=== PATIENT | male | born 1980 | race Caucasian/White ===

== ENCOUNTER 2020-11-19 10:37 | Emergency (ER) | payer MEDICAID ==
[~2020-11-19] VITALS: Ht 190.5 cm; Wt 108.9 kg
--- NOTE | 2020-11-19 10:58 | NUR ---
BIB SELF C/O R BUTTOCK ABSCESS FOR 1 WEEK "IM INJECTING TESTOSTERONE ON THIS AREA" TOOK TRAMADOL 50MG PO AROUND 8:30AM. AOX4, NO SOB, NO S/O ANY ACUTE DISTRESS NOTED. PATIENT KEPT COMFORTABLE. SAFETY PRECAUTIONS IN PLACE. WILL CONTINUE TO MONITOR
[2020-11-19] MEDS ORDERED: PIPERACILLIN /TAZOBACTAM 3.375 G in IV D5W 50 ML IV ONE (11:00)
[2020-11-19] MEDS ORDERED: VANCOMYCIN 1 GM in IV D5W 250 ML IV ONE (11:00)
[2020-11-19 11:20] LABS: BASOPHILS # (AUTO) 0.1 K/uL (0.0-0.2); EOSINOPHILS % (AUTO) 0.9 % (0.0-6.0); HEMATOCRIT 41 % (39-51); HEMOGLOBIN 13.7 g/dL (13.5-17.5); LYMPHOCYTES # (AUTO) 0.5 K/uL (0.8-4.8); MEAN CORPUSCULAR HGB CONC 34 g/dl (31.0-36.0); MEAN CORPUSCULAR VOLUME 91 fL (80-96); MONOCYTES # (AUTO) 0.8 K/uL (0.1-1.30); MONOCYTES % (AUTO) 6.5 % (2.0-12.0); NEUTROPHILS # (AUTO) 10.5 K/uL (1.8-8.9); NEUTROPHILS % (AUTO) 87.6 % (43.0-81.0); PLATELET COUNT (AUTO) 315 K/uL (150-450); RED BLOOD CELL COUNT(AUTO) 4.53 MIL/uL (4.5-6.0); WHITE BLOOD COUNT (AUTO) 11.9 K/uL (4.3-11.0)
[2020-11-19 11:28] LABS: CALCIUM, SERUM 8.8 mg/dL (8.5-10.1); CREATININE 1.2 mg/dL (0.6-1.3); POTASSIUM 3.7 mmol/L (3.5-5.1)
--- NOTE | 2020-11-19 11:40 | NUR ---
Carmelo nugent in [facility] - 11/19/20 at 1141 by CHAD BED ASSIGNMENT TO 103
--- NOTE | 2020-11-19 13:12 | NUR ---
[facility] CALLED NUTTER UP PAGED.
[2020-11-19 13:30] VITALS: BP 128/86
--- NOTE | 2020-11-19 13:30 | NUR ---
PT ASLEEP, EASILY AWAKEN BY VERBAL STIMULI. DENIES CP, SOB, DIZZINESS, N/V AT THIS TIME. WILL CONT TO MONITOR.
[2020-11-19] MEDS ORDERED: ACETAMINOPHEN 325 MG TABLET PO PRN (14:00)
[2020-11-19] MEDS ORDERED: MORPHINE SULFATE INJ 2 MG/ML DISP.SYRIN IV PRN (14:00)
[2020-11-19] MEDS ORDERED: ONDANSETRON HCL/PF 4 MG/2 ML VIAL IVP PRN (14:00)
[2020-11-19] MEDS ORDERED: IV NS 0.9% 1,000 ML IV PRN (14:00)
[2020-11-19] MEDS ORDERED: LABETALOL 20 MG/4 ML VIAL IV PRN (14:00)
[2020-11-19] MEDS ORDERED: hydrALAZINE HCL IV 20 MG VIAL IV PRN (14:00)
--- NOTE | 2020-11-19 16:20 | NUR ---
PT SIGNED AMA FORM. PT STS " I JUST NEED TO DO SOMETHING AND I WILL BE RIGHT BACK ". DR. LEÓN AWARE. IV removed. Catheter intact and site benign. Pressure and 4x4 applied to site. No bleeding noted.
[2020-11-19] MEDS ORDERED: ENOXAPARIN SODIUM 40 MG/0.4 ML DISP.SYRIN SQ SCH (21:00)
[2020-11-19] MEDS ORDERED: VANCOMYCIN HCL 1.25 GM in IV D5W 260 ML IV ONE (22:00)
[2020-11-20] MEDS ORDERED: CEFEPIME 1 GM in IV D5W 50 ML IV SCH (09:00)
== END 2020-11-19 16:21 | disposition left against medical advice (07) ==
LOC: ER 10:41
DX: L02.31 Cutaneous abscess of buttock (principal); S31.813S Puncture wound without foreign body of right buttock, sequela; X78.8XXS Intentional self-harm by other sharp object, sequela; Z20.822 Contact with and (suspected) exposure to COVID-19; R94.31 Abnormal electrocardiogram [ECG] [EKG]
CPT/HCPCS: 36415; 71045; 80048; 83605; 84145; 85025; 85730; 87040 ×2; 87081; 87426; 93005; 96365; 96367; 99285; C9803; J2543; J3370; J7060

== ENCOUNTER 2020-11-20 09:23 | Inpatient (IN) | payer MEDICAID ==
[~2020-11-20] VITALS: Ht 185.4 cm; Wt 90.7 kg
--- NOTE | 2020-11-20 09:23 | NUR ---
PT BIB SELF C/O R BUTTOCK ABSCESS "IM INJECTING TESTOSTERONE AND GOT INFECTED" PT IS AAOX4, NOT IN RESPIRATORY DISTRESS, V/S STABLE, KEPT RESTED AND COMFORTABLE. WILL CONTINUE TO MONITOR.
--- NOTE | 2020-11-20 09:31 | NUR ---
AT BEDSIDE FOR EVAL.
--- NOTE | 2020-11-20 09:35 | NUR ---
IV LINE ESTABLISHED BLOOD DRAWN AND SENT TO LAB.
[2020-11-20] MEDS ORDERED: IBUPROFEN 400 MG TABLET ONE (09:44)
[2020-11-20] MEDS ORDERED: IBUPROFEN 400 MG TABLET PO ONE (10:00)
[2020-11-20] MEDS ORDERED: CEFEPIME 1 GM in IV D5W 50 ML IV ONE (10:00)
[2020-11-20] MEDS ORDERED: VANCOMYCIN 1 GM in IV D5W 250 ML IV ONE (10:00)
[2020-11-20] MEDS ORDERED: IV NS 0.9% 1,000 ML BAG IV ONE (10:00)
[2020-11-20 10:09] LABS: RED BLOOD CELL COUNT(AUTO) 4.68 MIL/uL (4.5-6.0)
[2020-11-20 10:14] LABS: CALCIUM, SERUM 8.8 mg/dL (8.5-10.1); CREATININE 1.2 mg/dL (0.6-1.3); POTASSIUM 4.2 mmol/L (3.5-5.1)
[2020-11-20 10:17] LABS: BASOPHILS # (AUTO) 0.1 K/uL (0.0-0.2); BASOPHILS % (AUTO) 0.6 % (0.0-2.0); EOSINOPHILS % (AUTO) 2.2 % (0.0-6.0); HEMATOCRIT 42 % (39-51); HEMOGLOBIN 14.4 g/dL (13.5-17.5); LYMPHOCYTES # (AUTO) 0.9 K/uL (0.8-4.8); LYMPHOCYTES % (AUTO) 8.6 % (20.0-44.0); MEAN CORPUSCULAR HGB CONC 34 g/dl (31.0-36.0); MEAN CORPUSCULAR VOLUME 90 fL (80-96); MONOCYTES # (AUTO) 0.9 K/uL (0.1-1.30); MONOCYTES % (AUTO) 8.5 % (2.0-12.0); NEUTROPHILS # (AUTO) 8.2 K/uL (1.8-8.9); NEUTROPHILS % (AUTO) 80.1 % (43.0-81.0); PLATELET COUNT (AUTO) 360 K/uL (150-450); WHITE BLOOD COUNT (AUTO) 10.3 K/uL (4.3-11.0)
--- NOTE | 2020-11-20 11:49 | NUR ---
PAGED EPIC S[employer] RENTAL CLERK FOR CONSULT. ER MD AND SAFE DEPOS[employer] BOX RENTAL CLERK ARE ON THE PHONE
--- NOTE | 2020-11-20 11:55 | NUR ---
CALLED NURSING SUP FOR BED
[2020-11-20] MEDS ORDERED: MAG HYDROX/AL HYDROX/SIMETH 30 ML UDC PO PRN (12:30)
[2020-11-20] MEDS ORDERED: Z GUARD REMEDY 2 OZ OINT TP PRN (12:30)
[2020-11-20] MEDS ORDERED: ACETAMINOPHEN 325 MG TABLET PO PRN (12:30)
[2020-11-20] MEDS ORDERED: ONDANSETRON HCL/PF 4 MG/2 ML VIAL IVP PRN (12:30)
[2020-11-20] MEDS ORDERED: IV NS 0.9% 1,000 ML IV PRN (12:30)
[2020-11-20] MEDS ORDERED: MAGNESIUM HYDROXIDE 30 ML UDC PO PRN (12:30)
[2020-11-20] MEDS ORDERED: LIDOCAINE 2%-EPI 1:100,000 30 ML VIAL ONE (13:11)
[2020-11-20] MEDS ORDERED: MORPHINE SULFATE INJ 2 MG/ML DISP.SYRIN ONE (14:07)
--- NOTE | 2020-11-20 14:09 | NUR ---
I AND D DONE BY JOYCE SHERIDAN
[2020-11-20] MEDS ORDERED: MORPHINE SULFATE INJ 2 MG/ML DISP.SYRIN IV ONE (14:30)
--- NOTE | 2020-11-20 15:15 | NUR ---
BED [phone]. PLEASE BRING UP AT [phone]
--- NOTE | 2020-11-20 15:31 | NUR ---
REPORT GIVEN TO KURT AGUIRRE FOR CATHY.
--- NOTE | 2020-11-20 16:05 | NUR ---
RN NOTES PATIENT TRANSFERRED TO UNIT AT ROOM 313-1 VIA [facility], ACCOMPANIED BY 1 LUNCH TRUCK DRIVER. PATIENT ABLE TO AMBULATE TO BED.
--- NOTE | 2020-11-20 17:35 | NUR ---
RN NOTES RIGHT BUTTOCK WOUND RE-PACKED W/ GAUZE SECONDARY TO BEING SOAKED W/ SANGUINOUS DRAINAGE; PROCEDURE TOLERATED WELL BY PATIENT W/ NO COMPLAINT OF PAIN AT THIS TIME.
[2020-11-20] MEDS: MORPHINE SULFATE INJ 2 MG/ML DISP.SYRIN IV PRN ×2 (18:11→22:28)
--- NOTE | 2020-11-20 18:20 | NUR ---
RN NOTES ADMITTED THIS 40-YEAR-OLD MALE FROM HOME, PRESENTING TO THE ER W/ COMPLAINT OF SWELLING, PAIN, AND REDNESS ON RIGHT BUTTOCK W/ ADMITTING DX OF RIGHT BUTTOCK ABSCESS UNDER THE CARE OF DR. HAMLIN. PATIENT IS A/O X4, VERBALLY RESPONSIVE AND ABLE TO MAKE NEEDS KNOWN. BREATHING EVEN AND UNLABORED, TOLERATING ROOM AIR. IV ACCESS ON LAC #18 INTACT AND PATENT W/ IVF OF NS AT 75ML/HR INFUSING. PATIENT IS AMBULATORY W/ STEADY GAIT. RIGHT BUTTOCK WAS NOTED W/ ABDOMINAL PAD W/ LIGHT AMOUNT OF DRY BLOOD ON THE SIDES; ABSCESS WAS EXCISED AT THE ER S/P I&D BY HORACE COOK. WOUND WAS RE-PACKED W/ DRY DRESSING AND COVERED W/ ABDOMINAL PAD. SAFETY MEASURES IN PLACE. PATIENT WAS ORIENTED TO USE OF CALL LIGHT BUTTON FOR STAFF ASSISTANCE. PROVIDED W/ PAIN MEDICATION PER REQUEST FOR PAIN. WILL ENDORSE TO TELEVISION WRITER RN FOR CATHY.
--- NOTE | 2020-11-20 19:28 | NUR ---
MS RN OPENING NOTES: RECEIVED PATIENT SLEEP IN BED COMFORTABLY, AROUSABLE TO VERBAL STIMULI, BED IN LOW CONDITION, CALL LIGHTS WITHIN REACH, NO COMPLAIN OF PAIN AND DISCOMFORT AT THIS TIME, WITH IV LINE AT LAC #18 ON NSS@75ML INFUSING WELL, PATIENT KEPT CLEAN AND DRY, WILL CONTINUE TO MONITOR.
[2020-11-20 20:00] VITALS: BP 147/83
[2020-11-20] MEDS: CEFEPIME 2 GM in IV D5W 100 ML IV SCH (21:18)
[2020-11-20] MEDS: VANCOMYCIN 1.5 GM in IV D5W 500 ML IV SCH (22:35)
--- NOTE | 2020-11-21 06:37 | NUR ---
MS RN CLOSING NOTES: RECEIVED PATIENT SLEEP IN BED COMFORTABLY, AROUSABLE TO STIMULI, BED IN LOW POSITION, CALL LIGHTS WITHIN REACH, NO COMPLAIN OF PAIN AND DISCOMFORT AT THIS TIME, A/O X4, AMBULATORY WITH IV LINE AT LAC #18 WITH NSS RUNNING AT 75ML/HR INFUSING WELL, CHANGE DRESSING FOR INCISION AND DRAINAGE ON RIGHT HIP, ALL NEEDS MET , KEPT CLEAN AND DRY, ENDORSE TO INCOMING SHIFT.
[2020-11-21 06:38] LABS: BASOPHILS # (AUTO) 0.1 K/uL (0.0-0.2); BASOPHILS % (AUTO) 1.1 % (0.0-2.0); EOSINOPHILS % (AUTO) 7.2 % (0.0-6.0); HEMATOCRIT 39 % (39-51); HEMOGLOBIN 13.1 g/dL (13.5-17.5); LYMPHOCYTES # (AUTO) 1.2 K/uL (0.8-4.8); LYMPHOCYTES % (AUTO) 21.8 % (20.0-44.0); MEAN CORPUSCULAR HGB CONC 34 g/dl (31.0-36.0); MEAN CORPUSCULAR VOLUME 91 fL (80-96); MONOCYTES # (AUTO) 0.6 K/uL (0.1-1.30); MONOCYTES % (AUTO) 10.9 % (2.0-12.0); NEUTROPHILS # (AUTO) 3.2 K/uL (1.8-8.9); PLATELET COUNT (AUTO) 342 K/uL (150-450); RED BLOOD CELL COUNT(AUTO) 4.24 MIL/uL (4.5-6.0); WHITE BLOOD COUNT (AUTO) 5.5 K/uL (4.3-11.0)
[2020-11-21 07:09] LABS: ALBUMIN 2.4 g/dL (3.4-5.0); BILIRUBIN,TOTAL 0.2 mg/dL (0.2-1.0); CALCIUM, SERUM 8.2 mg/dL (8.5-10.1); CREATININE 1.3 mg/dL (0.6-1.3); MAGNESIUM 2.1 mg/dL (1.8-2.4); PHOSPHORUS 3.2 mg/dL (2.5-4.9); TOTAL PROTEIN, SERUM 6.3 g/dL (6.4-8.2)
--- NOTE | 2020-11-21 07:18 | NUR ---
MS RN OPENING NOTE RECEIVED PATIENT RESTING IN BED. PATIENT IS A/O X4. PATIENT IS BREATHING EVENLY AND NONLABORED ON ROOM AIR. PATIENT IS IN NO ACUTE SIGNS OF DISTRESS. PATIENT HAS DRESSING INTACT ON BUTTOCK CLEAN AND DRY. PATIENT HAS IV ACCESS LAC # 18 RUNNING NS @ 75 ML/HR. SAFETY MEASURES IN PLACE BED LOW LOCKED AND CALL LIGHT WITHIN REACH. WILL CONTINUE TO MONITOR.
[2020-11-21] MEDS: PANTOPRAZOLE 40 MG TABLET.DR PO SCH (07:54)
[2020-11-21 08:00] VITALS: BP 137/75
[2020-11-21] MEDS: CEFEPIME 2 GM in IV D5W 100 ML IV SCH ×2 (08:04→21:06)
[2020-11-21] MEDS: VANCOMYCIN 1.5 GM in IV D5W 500 ML IV SCH (10:09)
[2020-11-21] MEDS: VANCOMYCIN 1.25 GM in IV D5W 250 ML IV SCH (18:08)
--- NOTE | 2020-11-21 18:23 | NUR ---
MS RN CLOSING NOTES: PATIENT RESTING IN BED COMFORTABLY, ABUSABLE TO STIMULI. PATIENT IS A/O X4. PATIENT IS BREATHING EVENLY AND NONLABORED ON ROOM AIR. NO COMPLAIN OF PAIN AND DISCOMFORT AT THIS TIME, AMBULATORY WITH IV LINE AT LAC #18 WITH NSS RUNNING AT 75ML/HR INFUSING WELL, CHANGED DRESSING FOR INCISION AND DRAINAGE ON RIGHT HIP C/D/I. ALL NEEDS MET AND MEDICATIONS GIVEN ORDERED, SAFETY MEASURES ARE IN PLACE BED IN LOW POSITION, CALL LIGHTS WITHIN REACH. WILL ENDORSE TO INCOMING SHIFT.
--- NOTE | 2020-11-21 19:35 | NUR ---
MS RN Opening Notes Patient was last seen awake in bed resting. Patient's alert and oriented x4. Patient's on room air with no respiratory distress noted. Patient has an IV access on his left AC #18. Patient's in no acute distress at this time. Safety measures in place: Bed locked, side rails up x2, and call light within reach of the patient. Will continue to monitor the patient.
[2020-11-21 20:00] VITALS: BP 153/59
[2020-11-22] MEDS: VANCOMYCIN 1.25 GM in IV D5W 250 ML IV SCH ×2 (02:07→09:11)
[2020-11-22 07:09] LABS: ALBUMIN 2.5 g/dL (3.4-5.0); BILIRUBIN,TOTAL 0.2 mg/dL (0.2-1.0); CALCIUM, SERUM 7.9 mg/dL (8.5-10.1); CREATININE 1.5 mg/dL (0.6-1.3); MAGNESIUM 2.2 mg/dL (1.8-2.4); POTASSIUM 3.8 mmol/L (3.5-5.1); TOTAL PROTEIN, SERUM 6.5 g/dL (6.4-8.2)
--- NOTE | 2020-11-22 07:15 | NUR ---
MS RN Closing Notes Patient was last seen awake in bed resting. Patient's alert and oriented x4. Patient's on room air with no respiratory distress noted. Patient has an IV access on his left AC #18. Patient's in no acute distress at this time. Safety measures in place: Bed locked, side rails up x2, and call light within reach of the patient. Will endorse care to the day shift nurse.
--- NOTE | 2020-11-22 07:30 | NUR ---
WOUND CARE CONSULT: PT PRESENTS WITH SURGICAL SITE TO RT BUTTOCK, STATUS POST I&D. NO ERYTHEMA OR INDURATION NOTED. PT REFUSED TO HAVE PACKING REMOVED AT THIS TIME. OUTER DRESSING CHANGED (SEROSANGUINOUS DRAINAGE, NO ODOR). DEFER TO SURGICAL TEAM CURRENTLY ON CASE FOR WOUND TREATMENT PLAN. WILL SEE PRN.
[2020-11-22] MEDS: CEFEPIME 2 GM in IV D5W 100 ML IV SCH (08:03)
[2020-11-22] MEDS: PANTOPRAZOLE 40 MG TABLET.DR PO SCH (08:03)
[2020-11-22 08:16] VITALS: BP 129/73
--- NOTE | 2020-11-22 11:53 | NUR ---
ELEMENTARY VOCAL MUSIC TEACHER NOTE RECEIVED ORDER FOR DISCHARGE PATIENT IS A/O X4. PATIENT IS BREATHING EVENLY AND NONLABORED ON ROOM AIR. PATIENT WAS GIVEN DISCHARGE INSTRUCTIONS BOTH VERBALLY AND IN WRITTEN FORM. VERBALIZED UNDERSTANDING. PATIENT WAS TAUGHT HOW TO CHANGE DRESSINGS AND GIVEN SUPPLIES. PATIENT WAS ALSO GIVEN WRITTEN PRESCRIPTION. IV ACCESS WAS REMOVED CATHETER TIP INTACT, PRESSURE DRESSING APPLIED. ID BAND REMOVED PATIENT LEFT IN STABLE CONDITION VIA PRIVATE CAR
== END 2020-11-22 11:50 | disposition home or self-care (01) | DRG 383 ==
LOC: ER 09:23 → TRANSITION 12:45 → MED 15:38
PROVIDERS: ADMIT Hospitalist
PROC: 0H98XZZ Drainage of Buttock Skin, External Approach (ICD-10-PCS; principal; 2020-11-20)
DX: L02.31 Cutaneous abscess of buttock (principal); E44.1 Mild protein-calorie malnutrition; Z79.52 Long term (current) use of systemic steroids; Z91.19 Patient's noncompliance with other medical treatment and regimen; L03.317 Cellulitis of buttock; B95.8 Unspecified staphylococcus as the cause of diseases classified elsewhere
CPT/HCPCS: 36415; 80048-TC; 80053-TC; 80061-TC; 80202-TC; 83735-TC; 84100-TC; 85025-TC; 87070-TC; 87081-TC; A6253; A6403; A6407; G0378; J0692; J2270; J2405; J3370; J3490; J7030; J7060

== ENCOUNTER 2022-12-17 13:02 | Emergency (ER) | payer MEDICAID, OTHER ==
[~2022-12-17] VITALS: Ht 190.5 cm; Wt 113.4 kg
[2022-12-17 13:55] VITALS: BP 128/71; TEMP 98.5; O2SAT 100
== END 2022-12-17 13:55 | disposition home or self-care (01) ==
LOC: ER 13:06
DX: S50.11XA Contusion of right forearm, initial encounter (principal); W22.8XXA Striking against or struck by other objects, initial encounter; Y93.89 Activity, other specified; Y92.89 Other specified places as the place of occurrence of the external cause; Y99.8 Other external cause status